=== PATIENT | female | born 1965 | race Caucasian/White ===

== ENCOUNTER 2020-05-18 15:10 | Outpatient (RCR) | payer OTHER, SELFPAY ==
--- NOTE | 2020-05-18 16:25 | PTOPEVAL ---
Thank you for referring Leah Mayer to [facility].? The patient is scheduled to be seen for therapy? ____x/week for ___ weeks. Please review, sign, date and return this plan of care JASON. I agree with and certify that the following plan of care is medically necessary. Referring Physician Date Admitting Provider: Attending Provider: WINSOME VINSON Referring Provider: *PT Outpatient Evaluation Start: 05/18/20 15:19 Freq: Status: Active Protocol: Document 05/18/20 15:20 [facility] (Rec: 05/18/20 16:11 [facility] [id number]) Therapy Assessment Status Assessment Status Assessment Status Evaluation Evaluation Information Problem Diagnosis R foot pain Onset 05/12/20 Additional Evaluation Detail lefs = 76% functionally declined Subjective Information patient reports she has had Query Text:As Reported By Patient/ pain in the R foot for years. Family however, she reports her pain has been much worse over the last 6 months. she reports she has a burning sensation along the 1st met of the R foot (medial aspect). she reports she is disabled from other medical reasons. she reports she no new activity change. she reports her pain is increased with walking and standing. she reports she has had x-rays of the foot that are negative. Prior Level of Function Comments Additional Prior Level of Function patient reports she does have Comments fibromyalgia, lyme disease, and lupus. she reports prior to 6 months ago, she reports she was able to walk and move about the community with pain, but no burning. she reports she has increased burning with an ice pack applied to the foot. 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 Pain Assessment Timing of Pain Assessment Timing of Pain Assessment Assessment Pain Scale Pain Scale Used Numeric (1 - 10) Self Report Pain Assessment Right Foot/Feet Reported Pain Level 5 Pain Description Burning,Sharp Pain Frequency Acute
== END 2020-08-16 23:59 | disposition home or self-care (01) ==
LOC: CHSPT 15:10
DX: M79.671 Pain in right foot (principal)
CPT/HCPCS: 97110; 97112; 97140; 97161